=== PATIENT | male | born 1955 | race Caucasian/White ===

== ENCOUNTER 2017-09-25 16:06 | Emergency (ER) | payer OTHER ==
[~2017-09-25] VITALS: Ht 182.9 cm; Wt 85.9 kg
[~2017-09-25 16:06] MED LIST: FINA5TAB2 PO
[2017-09-25 16:17] VITALS: BP 139/76; PULSE 84; RESP 16; TEMP 97.9; O2SAT 97
[2017-09-25] MEDS ORDERED: TETANUS/DIPHTHERIA TOXOID ADULT 0.5 ML VIAL IM ONE (16:45)
[2017-09-25] MEDS ORDERED: CEPH-460 PO (17:43)
[2017-09-25] MEDS ORDERED: CEPHALEXIN MONOHYDRATE 500 MG CAP PO ONE (17:45)
--- NOTE | 2017-09-25 17:48 | PD ---
HPI Chief Complaint: Laceration/Skin Injury Time Seen by Provider: 16:40 Travel History International Travel<30 days: No Contact w/Intl Traveler<30days: No Traveled to known affect area: No History of Present Illness HPI 61-year-old male presents emergency department for evaluation of a laceration to the right thumb after being smashed under a trailer hitch. States that he has are moving a trailer hitch when and actually smashed his thumb resulting in this injury. Patient denies have the tingling. Says the pain is moderate in severity, since he was able to control the bleeding on its own.. He does not remember when his last tetanus vaccination was. Has no other complaints today. Of note, patient states that he is due to leave the area permanently tomorrow and will be unable to follow-up here in the emergency department. PFSH Past Medical History Diminished Hearing: No Kidney Stones: Yes Immunizations Current: Yes Past Surgical History Genitourinary Surgery: Yes (VASECTOMY) Other Surgery: Yes (vastectomy) Social History Alcohol Use: No Tobacco Use: No Substance Use: No Allergies-Medications (Allergen,Severity, Reaction): Coded Allergies: lactose (Unverified Allergy, Mild, 09/25/17) Reported Meds & Prescriptions Reported Meds & Active Scripts Active Keflex (Cephalexin) 500 Mg Cap 500 Mg PO Q8H 5 Days Finasteride 5 Mg Tab 5 Mg PO DAILY Do not crush. Review of Systems Except as stated in HPI: all other systems reviewed are Neg Physical Exam Narrative GENERAL: Well-nourished, well-developed patient. SKIN: Focused skin assessment warm/dry. HEAD: Normocephalic. EYES: No scleral icterus. No injection or drainage. NECK: Supple, trachea midline. No JVD or lymphadenopathy. CARDIOVASCULAR: Regular rate and rhythm without murmurs, gallops, or rubs. RESPIRATORY: Breath sounds equal bilaterally. No accessory muscle use. GASTROINTESTINAL: Abdomen soft, non-tender, nondistended. MUSCULOSKELETAL: No cyanosis, or edema. Right thumb BACK: Nontender without obvious deformity. No CVA tenderness. Data Data Last Documented VS Vital Signs Date Time Temp Pulse Resp B/P (MAP) Pulse Ox O2 Delivery O2 Flow Rate FiO2 09/25/17 16:17 97.9 84 16 139/76 (97) 97 Orders Orders Tetanus/Diphtheria Tox Adult (Tetanus/Di (09/25/17 16:45) Cephalexin (Keflex) (09/25/17 17:45) Wound Care (09/25/17 17:44) Ed Discharge Order (09/25/17 17:52) [facility] Medical Decision Making Medical Screen Exam Complete: Yes Emergency Medical Condition: Yes Differential Diagnosis Right thumb laceration, avulsion, abrasion, crush injury Narrative Course 61-year-old male presents emergency department for evaluation of a laceration to the right thumb after being smashed under a trailer hitch. States that he has are moving a trailer hitch when and actually smashed his thumb resulting in this injury. Patient denies have the tingling. Says the pain is moderate in severity, since he was able to control the bleeding on its own.. He does not remember when his last tetanus vaccination was. Has no other complaints today. Of note, patient states that he is due to leave the area permanently tomorrow and will be unable to follow-up here in the emergency department. Vital signs are stable. Physical exam findings consistent with a soft tissue injury. No evidence of involvement of the bone so did not get an x-ray. Neurovascularly intact. The wound did extend to the nail. Laceration repair was completed to the medial aspects of the nail. Advised the patient that the nail may not grow back normal. I also advised that patient take the antibiotics as prescribed. First dose of Keflex administered in the emergency department today. He is strongly advised to follow-up in 7-10 days for suture removal. Follow-up with emergency department sooner for evidence of infectious process. Procedures Procedure Narrative LACERATION LOCATION: Right distal medial aspect of thumb LENGTH: 3 mm x 3 mm NUMBER OF STITCHES/GAMA: 5 4-0 Prolene REPAIR: The area of the laceration was prepped with Betadine and sterilely draped. A digital block performed 1% lidocaine without epinephrine. The wound was copiously irrigated and explored without evidence of foreign body , tendon injury or neurovascular injury. The wound was closed using 4-0 Prolene. This was a single layer repair. A sterile dressing was applied. The patient was advised to keep the dressing clean and dry. Patient tolerated the procedure well. Note that the nail remains on the thumb for protection. Diagnosis Primary Impression: Laceration of thumb Qualified Codes: S61.011A - Laceration without foreign body of right thumb without damage to nail, initial encounter Referrals: Hand Surgeon Primary Care Physician Additional Instructions: Follow up with your primary care physician within 2-3 days. Keep area clean and dry for 24 hours. After 24 hours, you may bathe as normal but dry the area thoroughly. You may leave the Xeroform dressing on. If this falls off, apply clean gauze. If bleeding starts, apply pressure and elevate the area. If you developed increased redness, swelling, or pain return to the emergency department as this could be a sign of infection. Suture removal in 7-10 days. Scripts Cephalexin (Keflex) 500 Mg Cap 500 MG PO Q8H for Infection for 5 Days, #15 CAP 0 Refills Prov: Rey Cuellar MD 09/25/17 Disposition: 01 DISCHARGE HOME Condition: Stable Ivania Tovar September 25, 2017 17:47
== END 2017-09-25 18:00 | disposition home or self-care (01) ==
LOC: PHEFT 16:06
DX: S61.011A Laceration without foreign body of right thumb without damage to nail, initial encounter (principal); W23.0XXA Caught, crushed, jammed, or pinched between moving objects, initial encounter; Z23 Encounter for immunization; Z87.442 Personal history of urinary calculi; Z79.899 Other long term (current) drug therapy
CPT/HCPCS: 12001; 90471; 90714